=== PATIENT | female | born 1980 | race Caucasian/White ===

== ENCOUNTER 2024-06-04 04:28 | Emergency (ER) | payer OTHER ==
[~2024-06-04] VITALS: Ht 172.7 cm; Wt 72.6 kg
[2024-06-04] MEDS ORDERED: NS 1,000 ML IV SCH (04:50)
[2024-06-04] MEDS ORDERED: Folic Acid 1 MG TAB PO ONE (04:55)
[2024-06-04] MEDS ORDERED: Thiamine HCl 100 MG Tab PO ONE (04:55)
[2024-06-04 05:04] LABS: BASOPHILS ABSOLUTE AUTO 0.05 K/mm3 (0.00-0.23); BASOPHILS PERCENT AUTO 1 % (0-2); EOSINOPHILS ABSOLUTE AUTO 0.02 K/mm3 (0.00-0.68); EOSINOPHILS PERCENT AUTO 0 % (0-6); Hematocrit 39.7 % (33.0-51.0); Hemoglobin 13.9 g/dL (11.5-16.0); IMMATURE GRAN ABSOLUTE AUTO 0.02 K/mm3 (0.00-0.10); IMMATURE GRAN PERCENT AUTO 0 % (0-1); LYMPHOCYTES ABSOLUTE AUTO 2.29 K/mm3 (0.84-5.20); LYMPHOCYTES PERCENT AUTO 30 % (21-46); MONOCYTES PERCENT AUTO 9 % (4-13); Mean Corpuscular HGB 35.8 pg (26.0-34.0); Mean Corpuscular Volume 102 fL (80-100); Mean Platelet Volume 9.2 fL (9.1-12.4); NEUTROPHILS ABSOLUTE AUTO 4.48 K/mm3 (1.96-9.15); NEUTROPHILS PERCENT AUTO 59 % (41-73); Platelet Count 355 K/mm3 (150-400); RDW Coefficient Variation 13.7 % (11.7-14.2); RDW Standard Deviation 52.3 fL (35.1-46.3); Red Blood Cell Count 3.88 M/mm3 (3.80-5.20); White Blood Cell Count 7.56 K/mm3 (4.00-11.30)
[2024-06-04] MEDS ORDERED: Ondansetron HCl 2 MG / ML 2ML Vial IV ONE (05:05)
[2024-06-04] MEDS ORDERED: LORazepam 2 MG/ML 1ML Injection IV ONE (05:05)
[2024-06-04 05:19] LABS: Albumin, Blood 3.4 g/dL (3.4-5.0); Albumin/Globulin Ratio 1.1 (0.8-1.8); Bilirubin, Total 1.8 mg/dL (0.1-1.0); Calcium, Blood 8.1 mg/dL (8.5-10.1); Creatinine, Blood 0.6 mg/dL (0.40-1.00); Magnesium, Blood 1.7 mg/dL (1.6-2.4); Potassium, Blood 3.3 mmol/L (3.5-5.5); Total Protein, Blood 6.4 g/dL (6.4-8.2)
[2024-06-04] MEDS ORDERED: CHLO25 PO (10:24)
== END 2024-06-04 10:30 | disposition home or self-care (01) ==
LOC: ER 04:28
PROVIDERS: Emergency Medicine
DX: F10.139 Alcohol abuse with withdrawal, unspecified (principal)
CPT/HCPCS: 80053; 80320; 83690; 83735; 85025; 96374; 96375; 99285-25; A9270; J2060; J2405; J7030